=== PATIENT | female | born 1970 | race Caucasian/White ===

== ENCOUNTER 2024-05-09 06:20 | Day surgery (SDC) | payer BC, OTHER ==
[~2024-05-09 06:20] MED LIST: Sodium Chloride 0.9% 10 ML Syringe FLUSH PRN
[2024-05-09] MEDS ORDERED: Glycopyrrolate 0.2 MG/ML 5 ML MDV IV ONE (06:21)
[2024-05-09] MEDS ORDERED: Propofol 200 MG/20 ML SDV IV ONE (06:21)
[2024-05-09] MEDS ORDERED: Lidocaine 2% 100 MG/5 ML Syringe IVPUSH ONE (06:21)
[2024-05-09] MEDS ORDERED: Midazolam 1 MG/ML 2 ML SDV IV ONE (06:21)
[2024-05-09] MEDS: Lactated Ringers 1,000 ML IV SCH (07:26)
[2024-05-09] MEDS: Simethicone Drops 40 MG/0.6 ML 30 ML Bottle ONE (07:37)
== END 2024-05-09 08:50 | disposition home or self-care (01) ==
LOC: FB.SDS 06:20
PROVIDERS: ATTEND Surgery
DX: Z12.11 Encounter for screening for malignant neoplasm of colon (principal); K63.5 Polyp of colon; K57.30 Diverticulosis of large intestine without perforation or abscess without bleeding; Z80.0 Family history of malignant neoplasm of digestive organs
CPT/HCPCS: 00811; 45385; 88305; A9270; J1596; J2250; J2704; J7120

== ENCOUNTER 2024-08-15 20:56 | Emergency (ER) | payer BC, OTHER ==
[2024-08-15] MEDS ORDERED: Sodium Chloride 0.9% 10 ML Syringe FLUSH PRN (21:10)
[2024-08-15] MEDS: Ondansetron 4 MG/2 ML SDV IVPUSH ONE (21:37)
[2024-08-15] MEDS: Sodium Chloride 0.9% 1,000 ML IV SCH (21:38)
[2024-08-15] MEDS: Morphine 4 MG/ML VIAL IVPUSH ONE (21:38)
[2024-08-15] MEDS: Ketorolac 30 MG/ML SDV IVPUSH ONE (21:39)
[2024-08-15 21:43] LABS: BASOPHILS PERCENT AUTO 0.7 % (0.2-1.5); EOSINOPHILS PERCENT AUTO 0.8 % (0.6-8.1); HEMATOCRIT 38.7 % (34.2-48.2); HEMOGLOBIN 13.8 g/dL (11.4-15.5); LYMPHOCYTES ABSOLUTE AUTO 2.4 x10-3/uL (1.0-4.4); LYMPHOCYTES PERCENT AUTO 42.1 % (18.4-52.1); MEAN CORPUSCULAR HEMOGLOBIN 32.4 pg (23.9-33.9); MEAN CORPUSCULAR HGB CONC 35.7 g/dL (31.9-34.8); MEAN CORPUSCULAR VOLUME 90.9 fL (76.7-100.5); MEAN PLATELET VOLUME 6.7 fL (7.1-12.4); MONOCYTES ABSOLUTE AUTO 0.5 x10-3/uL (0.3-1.0); MONOCYTES PERCENT AUTO 9.4 % (4.4-15.7); NEUTROPHILS ABSOLUTE AUTO 2.7 x10-3/uL (1.5-6.3); PLATELET COUNT,PLT 431 x10(3)uL (151-488); RED BLOOD CELL COUNT 4.26 x10(6)uL (3.60-5.20); RED CELL DISTRIBUTION WIDTH 12.2 % (12.3-16.5); WHITE BLOOD CELL COUNT,WBC 5.7 x10-3/uL (3.0-10.3)
[2024-08-15 21:46] LABS: BLOOD UREA NITROGEN,BUN 8 mg/dL (7-18); CALCIUM 9.2 mg/dL (8.6-10.2); CARBON DIOXIDE,CO2 29 mmol/L (21-32); CHLORIDE,CL 102 mmol/L (100-110); ESTIMATED GFR 67 mL/min (>60); GLUCOSE RANDOM 109 mg/dL (80-116); SODIUM,NA 141 mmol/L (135-145)
[2024-08-15 21:53] LABS: ALANINE AMINOTRANSFERASE,ALT 26 U/L (12-36); ALBUMIN 3.7 g/dL (3.5-5.2); ALKALINE PHOSPHATASE 35 IU/L (56-112); ASPARTATE AMNIOTRANSFERASE,AST 17 IU/L (5-25); BILIRUBIN TOTAL 0.4 mg/dL (0.1-1.3); PROTEIN TOTAL,TP 7.3 g/dL (6.0-8.0)
== END 2024-08-15 22:45 | disposition home or self-care (01) ==
LOC: FB.ED 20:56
DX: K80.50 Calculus of bile duct without cholangitis or cholecystitis without obstruction (principal); I10 Essential (primary) hypertension; E66.9 Obesity, unspecified; Z90.710 Acquired absence of both cervix and uterus; Z79.51 Long term (current) use of inhaled steroids; Z79.899 Other long term (current) drug therapy
CPT/HCPCS: 36415; 80053; 83690; 85025; 96374; 96375; 99284; J1885; J2270; J2405; J7030

== ENCOUNTER 2025-02-20 06:00 | Emergency (ER) | payer BC, OTHER | END 2025-02-20 08:32 | disposition home or self-care (01) | LOC: FB.ED 06:00 | DX: S83.92XA Sprain of unspecified site of left knee, initial encounter (principal); I10 Essential (primary) hypertension; E78.00 Pure hypercholesterolemia, unspecified; E66.9 Obesity, unspecified; Z79.899 Other long term (current) drug therapy; Z68.33 Body mass index [BMI] 33.0-33.9, adult; X50.1XXA Overexertion from prolonged static or awkward postures, initial encounter | CPT/HCPCS: 73562-LT; 99283 ==